=== PATIENT | female | born 1985 | race Caucasian/White ===

== ENCOUNTER 2019-07-25 12:03 | Observation (INO) | payer OTHER ==
[~2019-07-25] VITALS: Ht 152.4 cm; Wt 72.6 kg
[2019-07-25] MEDS ORDERED: BETAMETH ACET/BETAMETH NA PH 30 MG/5 ML VIAL IM SCH (12:46)
[2019-07-25] MEDS ORDERED: TRA200 PO (12:55)
[2019-07-25] MEDS ORDERED: PREN-380 PO (12:55)
[2019-07-25] MEDS ORDERED: [UNRECOGNIZED DRUG - CODE] PO (12:55)
[2019-07-25 13:31] LABS: BASOPHILS % (AUTO) 0.2 % (0.0-2.0); EOSINOPHILS % (AUTO) 0.6 % (0.0-4.0); HEMOGLOBIN 11.7 g/dL (12.0-16.0); LYMPHOCYTES % (AUTO) 17.4 % (20.5-51.1); MEAN CORPUSCULAR HEMOGLOBIN 33 pg (27-31); MEAN CORPUSCULAR HGB CONC 35 g/dL (33-37); MEAN CORPUSCULAR VOLUME 96.5 fL (80-94); MONOCYTES # (AUTO) 0.4 K/uL (0.8-1.0); MONOCYTES % (AUTO) 6.6 % (1.7-9.3); NEUTROPHILS # (AUTO) 4.4 K/uL (1.8-7.7); NEUTROPHILS % (AUTO) 75.2 % (42.2-75.2); PLATELET COUNT (AUTO) 166 K/uL (140-450); RED BLOOD CELL COUNT(AUTO) 3.52 MIL/uL (4.20-5.40); RED CELL DISTRIBUTION WIDTH 13.8 % (11.6-13.7); WHITE BLOOD COUNT (AUTO) 5.9 K/uL (4.8-10.8)
[2019-07-25] MEDS: LACTATED RINGERS 1,000 ML IV SCH (13:34)
[2019-07-25 13:55] LABS: ALBUMIN 2.9 g/dL (3.4-5.0); ANION GAP 12.4 (8-16); CARBON DIOXIDE 25.2 mmol/L (21-32); CREATININE 0.7 mg/dL (0.6-1.3); POTASSIUM 3.6 mmol/L (3.5-5.1); PROTHROMBIN TIME 9.4 secs (10.8-13.4); TOTAL BILIRUBIN 0.8 mg/dL (0.0-1.0)
[2019-07-25] MEDS: MAG SULF 20 GM/H2O PREMIX DRIP 500 ML IV SCH ×2 (14:02→21:24)
[2019-07-25 14:06] LABS: URIC ACID 5.6 mg/dL (2.6-7.2)
[2019-07-25 14:11] LABS: APPEARANCE,URINE SL CLOUDY (CLEAR); BILIRUBIN,URINE NEGATIVE (NEGATIVE); BLOOD, URINE TRACE-L (NEGATIVE); COLOR,URINE YELLOW (YELLOW); LEUKOCYTE ESTERASE ,URINE NEGATIVE (NEGATIVE); NITRITE, URINE NEGATIVE (NEGATIVE); UGLUCOSE NEGATIVE (NEGATIVE)
[2019-07-25 14:34] LABS: RBC,URINE 0-5 /HPF (0-5); WBC,URINE 0-5 /HPF (0-5)
[2019-07-25 16:46] LABS: URINE TOTAL PROTEIN 10.2 mg/dL (0-12)
[2019-07-25] MEDS ORDERED: LABETALOL 100 MG TAB ONE (20:53)
[2019-07-25] MEDS: LABETALOL 200 MG TAB PO SCH (20:57)
[2019-07-25] MEDS ORDERED: ACETAMINOPHEN EXTRA STRENGTH 500 MG TAB ONE (23:50)
[2019-07-25] MEDS: ACETAMINOPHEN EXTRA STRENGTH 500 MG TAB PO PRN (23:52)
[2019-07-26] MEDS: LACTATED RINGERS 1,000 ML IV SCH (00:56)
[2019-07-26] MEDS: MAG SULF 20 GM/H2O PREMIX DRIP 500 ML IV SCH (06:39)
[2019-07-26] MEDS ORDERED: LABETALOL 100 MG TAB ONE (08:22)
[2019-07-26] MEDS: LABETALOL 200 MG TAB PO SCH (08:59)
[2019-07-26] MEDS: ACETAMINOPHEN EXTRA STRENGTH 500 MG TAB PO PRN (10:01)
[2019-07-26] MEDS ORDERED: BETAMETH ACET/BETAMETH NA PH 30 MG/5 ML VIAL IM SCH (14:00)
== END 2019-07-26 14:40 | disposition home or self-care (01) ==
LOC: MLD 12:03
PROVIDERS: ADMIT Obstetrics & Gynecology; ATTEND Obstetrics & Gynecology
DX: O16.3 Unspecified maternal hypertension, third trimester (principal); I16.0 Hypertensive urgency; O99.89 Other specified diseases and conditions complicating pregnancy, childbirth and the puerperium; E83.42 Hypomagnesemia; O99.013 Anemia complicating pregnancy, third trimester; D64.9 Anemia, unspecified; Z79.899 Other long term (current) drug therapy; Z3A.34 34 weeks gestation of pregnancy
CPT/HCPCS: 36415; 51702; 76805; 80053; 81001; 82570; 83735; 84550; 85025; 85384; 85610; 85730; 96365; 96366; 96367; 96372; 96376; G0378; J0702; J3475; J7120; Q0092

== ENCOUNTER 2019-08-07 15:32 | Outpatient (CLI) | payer OTHER, SELFPAY ==
[~2019-08-07 15:32] MED LIST: PREN-380 PO; [UNRECOGNIZED DRUG - CODE] PO
[2019-08-12] MEDS ORDERED: NIFEdipine 60 MG TABER PO ONE (21:09)
[2019-08-13] MEDS ORDERED: GENTAMICIN 80 MG/2 ML VIAL ONE ×2 (02:57→03:05)
[2019-08-13] MEDS ORDERED: AMPICILLIN/SULBACTAM 1.5 GM VIAL ONE (02:58)
[2019-09-06] MEDS ORDERED: NIFE60TA39 PO (12:38)
== END 2019-08-07 23:59 | disposition home or self-care (01) ==
LOC: MLB 15:32 → EDSTATUS 08-13 10:00
PROVIDERS: ATTEND Obstetrics & Gynecology
DX: Z01.818 Encounter for other preprocedural examination (principal); O34.29 Maternal care due to uterine scar from other previous surgery; Z11.59 Encounter for screening for other viral diseases
CPT/HCPCS: 36415; C9803; U0003

== ENCOUNTER 2019-08-10 10:53 | Inpatient (IN) | payer OTHER, SELFPAY ==
[~2019-08-10] VITALS: Ht 152.4 cm; Wt 73.0 kg
[~2019-08-10 10:53] MED LIST changes: +HYDROmorphone 1 MG/ML AMP IVP PRN; +NALOXONE 0.4 MG/ML VIAL IVP PRN; +ONDANSETRON 4 MG/2 ML VIAL IVP PRN; +diphenhydrAMINE 50 MG/ML VIAL IVP PRN
[2019-08-10] MEDS ORDERED: LACTATED RINGERS 1,000 ML IV SCH (12:10)
[2019-08-10 12:31] LABS: BASOPHILS % (AUTO) 0.3 % (0.0-2.0); EOSINOPHILS % (AUTO) 0.6 % (0.0-4.0); HEMATOCRIT 35.7 % (36-48); HEMOGLOBIN 12.1 g/dL (12.0-16.0); LYMPHOCYTES # (AUTO) 1.4 K/uL (2.5-16.5); LYMPHOCYTES % (AUTO) 19.3 % (20.5-51.1); MEAN CORPUSCULAR HEMOGLOBIN 33 pg (27-31); MEAN CORPUSCULAR HGB CONC 34 g/dL (33-37); MEAN CORPUSCULAR VOLUME 96.8 fL (80-94); MONOCYTES # (AUTO) 0.5 K/uL (0.8-1.0); MONOCYTES % (AUTO) 6.9 % (1.7-9.3); NEUTROPHILS # (AUTO) 5.3 K/uL (1.8-7.7); NEUTROPHILS % (AUTO) 72.9 % (42.2-75.2); PLATELET COUNT (AUTO) 154 K/uL (140-450); RED BLOOD CELL COUNT(AUTO) 3.69 MIL/uL (4.20-5.40); RED CELL DISTRIBUTION WIDTH 13.7 % (11.6-13.7); WHITE BLOOD COUNT (AUTO) 7.2 K/uL (4.8-10.8)
[2019-08-10 12:36] LABS: BILIRUBIN,URINE NEGATIVE (NEGATIVE); BLOOD, URINE NEGATIVE (NEGATIVE); COLOR,URINE YELLOW (YELLOW); LEUKOCYTE ESTERASE ,URINE NEGATIVE (NEGATIVE); NITRITE, URINE NEGATIVE (NEGATIVE); UGLUCOSE NEGATIVE (NEGATIVE)
[2019-08-10] MEDS ORDERED: LABETALOL 100 MG/20 ML VIAL IV SCH ×2 (12:38→14:14)
[2019-08-10 12:42] LABS: ANION GAP 16.4 (8-16); CARBON DIOXIDE 22.8 mmol/L (21-32); CREATININE 0.7 mg/dL (0.6-1.3); POTASSIUM 4.2 mmol/L (3.5-5.1)
[2019-08-10 12:43] LABS: PROTHROMBIN TIME 9.4 secs (10.8-13.4)
[2019-08-10 12:51] LABS: RBC,URINE 0-5 /HPF (0-5); WBC,URINE 0-5 /HPF (0-5)
[2019-08-10 12:52] LABS: APPEARANCE,URINE SLIGHTLY HAZY (CLEAR)
[2019-08-10 12:56] VITALS: BP 186/96
[2019-08-10 13:04] LABS: MAGNESIUM 1.7 mg/dL (1.8-2.4); URIC ACID 6.2 mg/dL (2.6-7.2)
[2019-08-10] MEDS ORDERED: hydrALAZINE 20 MG/ML VIAL IVP SCH (14:49)
[2019-08-10] MEDS: MAG SULF 20 GM/H2O PREMIX DRIP 500 ML IV SCH ×2 (15:05→20:29)
[2019-08-10] MEDS ORDERED: CITRIC ACID/SODIUM CITRATE 30 ML UDC PO SCH (15:59)
[2019-08-10 16:15] LABS: FIBRINOGEN > 500 mg/dL (200-400)
[2019-08-10] MEDS ORDERED: MORPHINE PRES FREE 10 MG/10 ML AMP IV ONE (16:26)
[2019-08-10] MEDS ORDERED: MIDAZOLAM 2 MG/2 ML VIAL ONE ×2 (17:31→18:01)
[2019-08-10] MEDS ORDERED: ONDANSETRON 4 MG/2 ML VIAL ONE (17:37)
[2019-08-10] MEDS ORDERED: OXYTOCIN 20 UNITS/LR PREMIX 1,000 ML IV ONE (17:38)
[2019-08-10] MEDS ORDERED: diphenhydrAMINE 50 MG/ML VIAL ONE (17:38)
[2019-08-10] MEDS ORDERED: KETOROLAC 60 MG/2 ML VIAL IM PRN (17:50)
[2019-08-10] MEDS ORDERED: ONDANSETRON 4 MG/2 ML VIAL IVP PRN (17:50)
[2019-08-10] MEDS ORDERED: NALOXONE 0.4 MG/ML VIAL IVP PRN (17:50)
[2019-08-10] MEDS ORDERED: CARBOPROST 250 MCG/ML AMP IM PRN (18:45)
[2019-08-10] MEDS ORDERED: PROMETHAZINE 25 MG/ML VIAL IVP PRN (18:45)
[2019-08-10] MEDS ORDERED: METHYLERGONOVINE 0.2 MG/ML AMP IM PRN (18:50)
[2019-08-10] MEDS ORDERED: OXYTOCIN 10 UNITS in LACTATED RINGERS 1,000 ML IV SCH (18:50)
[2019-08-10] MEDS ORDERED: MEASLES, MUMPS, AND RUBELLA 1 VIAL SQVAC PRN (18:50)
[2019-08-10] MEDS ORDERED: LABETALOL 100 MG TAB PO SCH (21:00)
[2019-08-11] MEDS: KETOROLAC 30 MG/ML VIAL IM/IVP SCH ×2 (00:02→06:02)
[2019-08-11 06:02] LABS: HEMATOCRIT 34.2 % (36-48); HEMOGLOBIN 11.7 g/dL (12.0-16.0); MEAN CORPUSCULAR HEMOGLOBIN 33 pg (27-31); MEAN CORPUSCULAR HGB CONC 34 g/dL (33-37); MEAN CORPUSCULAR VOLUME 96.9 fL (80-94); PLATELET COUNT (AUTO) 133 K/uL (140-450); RED BLOOD CELL COUNT(AUTO) 3.53 MIL/uL (4.20-5.40); RED CELL DISTRIBUTION WIDTH 13.9 % (11.6-13.7)
[2019-08-11 07:42] LABS: BASOPHILS % (MANUAL) 0 % (0-2); EOSINOPHILS % (MANUAL) 0 % (0-4); LYMPHOCYTES % (MANUAL) 12 % (20-46); MONOCYTES % (MANUAL) 6 % (5-12)
[2019-08-11] MEDS ORDERED: BISACODYL 10 MG SUPP RC SCH (09:00)
[2019-08-11] MEDS: oxyCODONE/APAP 5/325 MG 1 TAB TAB PO PRN ×3 (09:48→22:25)
[2019-08-11 10:11] LABS: ANION GAP 13.1 (8-16); CARBON DIOXIDE 23.1 mmol/L (21-32); CREATININE 0.8 mg/dL (0.6-1.3); POTASSIUM 4.2 mmol/L (3.5-5.1)
[2019-08-11 10:12] LABS: ALBUMIN 2.4 g/dL (3.4-5.0); TOTAL BILIRUBIN 1.4 mg/dL (0.0-1.0)
[2019-08-11] MEDS ORDERED: OXYTOCIN 10 UNITS/ML VIAL ONE (10:13)
[2019-08-11] MEDS ORDERED: IBUPROFEN 600 MG TAB PO PRN (10:20)
[2019-08-11] MEDS ORDERED: diphenhydrAMINE 50 MG CAP PO PRN (22:35)
[2019-08-12] MEDS ORDERED: MORPHINE SULFATE 4 MG/ML SYR IVP PRN (00:55)
[2019-08-12 05:47] LABS: BASOPHILS % (AUTO) 0.1 % (0.0-2.0); EOSINOPHILS % (AUTO) 0.4 % (0.0-4.0); HEMATOCRIT 21.2 % (36-48); HEMOGLOBIN 7.4 g/dL (12.0-16.0); LYMPHOCYTES # (AUTO) 0.9 K/uL (2.5-16.5); MEAN CORPUSCULAR HEMOGLOBIN 34 pg (27-31); MEAN CORPUSCULAR HGB CONC 35 g/dL (33-37); MEAN CORPUSCULAR VOLUME 97.6 fL (80-94); MONOCYTES # (AUTO) 0.5 K/uL (0.8-1.0); MONOCYTES % (AUTO) 6.4 % (1.7-9.3); NEUTROPHILS % (AUTO) 81.1 % (42.2-75.2); PLATELET COUNT (AUTO) 122 K/uL (140-450); RED BLOOD CELL COUNT(AUTO) 2.18 MIL/uL (4.20-5.40); RED CELL DISTRIBUTION WIDTH 13.9 % (11.6-13.7); WHITE BLOOD COUNT (AUTO) 7.4 K/uL (4.8-10.8)
[2019-08-12] MEDS: oxyCODONE/APAP 5/325 MG 1 TAB TAB PO PRN ×3 (05:54→18:04)
[2019-08-12 09:08] LABS: ANION GAP 13.3 (8-16); CARBON DIOXIDE 26.7 mmol/L (21-32); CREATININE 0.8 mg/dL (0.6-1.3); TOTAL BILIRUBIN 1.4 mg/dL (0.0-1.0)
[2019-08-12] MEDS: SIMETHICONE 80 MG TAB.CHEW PO PRN ×2 (10:38→18:03)
[2019-08-12] MEDS ORDERED: AMMONIA AROMATIC 1 INHL INH ONE (11:08)
--- NOTE | 2019-08-12 11:20 | NUR ---
PATIENT HAS BEEN SCREENED AND CATEGORIZED LOW NUTRITION RISK. PATIENT WILL BE SEEN WITHIN 7 DAYS OF ADMISSION. 08/17/2019 RAUL COUGHLIN MBA, RD
[2019-08-12] MEDS ORDERED: NIFEdipine 60 MG TABER PO ONE (20:05)
[2019-08-13] MEDS ORDERED: LACTATED RINGERS 1,000 ML IV SCH (01:20)
[2019-08-13] MEDS ORDERED: ACETAMINOPHEN EXTRA STRENGTH 500 MG TAB PO PRN (01:20)
[2019-08-13] MEDS ORDERED: GENTAMICIN PER PHARMACY MC ONE ×2 (01:20→01:45)
[2019-08-13] MEDS: IBUPROFEN 800 MG TAB PO PRN ×4 (01:32→18:57)
[2019-08-13] MEDS ORDERED: GENTAMICIN 400 MG in DEXTROSE 5% 100 ML IV ONE (02:05)
[2019-08-13] MEDS: AMPICILLIN/SULBACTAM 3 GM in NACL 0.9% 100 ML IV SCH ×2 (03:30→09:13)
[2019-08-13 05:51] LABS: BASOPHILS % (AUTO) 0.1 % (0.0-2.0); EOSINOPHILS % (AUTO) 0.3 % (0.0-4.0); HEMATOCRIT 22.1 % (36-48); HEMOGLOBIN 7.7 g/dL (12.0-16.0); LYMPHOCYTES % (AUTO) 11.7 % (20.5-51.1); MEAN CORPUSCULAR HEMOGLOBIN 34 pg (27-31); MEAN CORPUSCULAR HGB CONC 35 g/dL (33-37); MEAN CORPUSCULAR VOLUME 98.3 fL (80-94); MONOCYTES # (AUTO) 0.5 K/uL (0.8-1.0); MONOCYTES % (AUTO) 6.1 % (1.7-9.3); NEUTROPHILS # (AUTO) 7.1 K/uL (1.8-7.7); NEUTROPHILS % (AUTO) 81.8 % (42.2-75.2); PLATELET COUNT (AUTO) 149 K/uL (140-450); RED BLOOD CELL COUNT(AUTO) 2.25 MIL/uL (4.20-5.40); RED CELL DISTRIBUTION WIDTH 14.4 % (11.6-13.7); WHITE BLOOD COUNT (AUTO) 8.7 K/uL (4.8-10.8)
[2019-08-13] MEDS ORDERED: hydrOXYzine HCL 25 MG TAB PO PRN (07:15)
[2019-08-13] MEDS: SIMETHICONE 80 MG TAB.CHEW PO PRN ×3 (09:11→18:57)
[2019-08-13] MEDS: NIFEdipine 60 MG TABER PO SCH (09:12)
[2019-08-13] MEDS ORDERED: CLINDAMYCIN 600 MG in DEXTROSE 5% 50 ML IV SCH (13:00)
[2019-08-13] MEDS: CLINDAMYCIN 900 MG in DEXTROSE 5% 100 ML IV SCH ×2 (13:09→21:04)
[2019-08-13] MEDS ORDERED: CAMERA MC ONE (23:17)
[2019-08-14] MEDS ORDERED: GENTAMICIN PER PHARMACY MC SCH (02:20)
[2019-08-14] MEDS: IBUPROFEN 800 MG TAB PO PRN ×2 (02:23→08:33)
[2019-08-14] MEDS ORDERED: GENTAMICIN 100 MG in DEXTROSE 5% 100 ML IV SCH (05:00)
[2019-08-14] MEDS: CLINDAMYCIN 900 MG in DEXTROSE 5% 100 ML IV SCH ×2 (05:20→12:43)
[2019-08-14 06:39] LABS: ANION GAP 16.1 (8-16); CARBON DIOXIDE 23.1 mmol/L (21-32); CREATININE 0.6 mg/dL (0.6-1.3); POTASSIUM 3.2 mmol/L (3.5-5.1)
[2019-08-14] MEDS: SIMETHICONE 80 MG TAB.CHEW PO PRN ×2 (08:33→13:42)
[2019-08-14] MEDS: NIFEdipine 60 MG TABER PO SCH (08:41)
[2019-08-14] MEDS: oxyCODONE/APAP 5/325 MG 1 TAB TAB PO PRN (12:42)
== END 2019-08-14 14:50 | disposition home or self-care (01) | DRG 540 ==
LOC: MLD 10:53 → OBSVTOIN 11:06 → MLD 19:32 → MFCC 08-12 10:32
PROVIDERS: ADMIT Obstetrics & Gynecology; ATTEND Obstetrics & Gynecology
PROC: 10D00Z1 Extraction of Products of Conception, Low, Open Approach (ICD-10-PCS; principal; 2019-08-10 17:00)
DX: O34.211 Maternal care for low transverse scar from previous cesarean delivery (principal); D69.6 Thrombocytopenia, unspecified; D62 Acute posthemorrhagic anemia; O14.14 Severe pre-eclampsia complicating childbirth; O13.4 Gestational [pregnancy-induced] hypertension without significant proteinuria, complicating childbirth; Z37.0 Single live birth; Z3A.36 36 weeks gestation of pregnancy; O99.12 Other diseases of the blood and blood-forming organs and certain disorders involving the immune mechanism complicating childbirth; O99.02 Anemia complicating childbirth; O99.344 Other mental disorders complicating childbirth; F41.9 Anxiety disorder, unspecified
CPT/HCPCS: 36415; 51702; 59025; 71045; 80048; 80053; 81001; 82570; 83735; 84550; 85025; 85384; 85610; 85730; 86592; 86886; 86900; 86901; G0378; J0295; J0690; J1200; J1580; J1885; J2210; J2250; J2270; J2405; J2590; J3475; J3490; J7060; J7120; Q0163